=== PATIENT | male | born 1990 | race Caucasian/White ===

== ENCOUNTER 2018-09-08 21:00 | Emergency (ER) | payer BC ==
[~2018-09-08] VITALS: Ht 185.4 cm; Wt 106.6 kg
--- NOTE | 2018-09-08 21:20 | NUR ---
BIBPARENT C/O HEART PALPITATIONS X1 MONTH. -CP, -SOB, -N/V/D, -HEADACHE, -DIZINESS. NO OTHER COMPLAINTS AT THIS TIME. NO ACUTE DISTRESS NOTED. AOX4, VSS, RR EVEN AND UNLABORED ON RA. AMBULATORY WITH STEADY GAIT. ON MONITOR AND MADE COMFORTABLE. READY FOR MD KELLEY.
--- NOTE | 2018-09-08 21:42 | NUR ---
DR DOVE AT BEDSIDE FOR EVAL.
[2018-09-08] MEDS: IV NS 0.9% 1,000 ML BAG IV ONE (21:57)
[2018-09-08 22:06] LABS: BASOPHILS # (AUTO) 0.1 /CMM (0.0-0.2); BASOPHILS % (AUTO) 0.7 % (0.0-2.0); EOSINOPHILS % (AUTO) 0.1 % (0.0-6.0); HEMATOCRIT 43 % (39-51); HEMOGLOBIN 14.1 g/dL (13.5-17.5); LYMPHOCYTES # (AUTO) 1.8 /CMM (0.8-4.8); LYMPHOCYTES % (AUTO) 23.1 % (20.0-44.0); MEAN CORPUSCULAR HGB CONC 33 g/dl (31.0-36.0); MEAN CORPUSCULAR VOLUME 89 fL (80-96); MONOCYTES # (AUTO) 0.8 /CMM (0.1-1.30); MONOCYTES % (AUTO) 9.8 % (2.0-12.0); NEUTROPHILS # (AUTO) 5.1 /CMM (1.8-8.9); NEUTROPHILS % (AUTO) 66.3 % (43.0-81.0); PLATELET COUNT (AUTO) 205 /CMM (150-450); RED BLOOD CELL COUNT(AUTO) 4.82 MIL/uL (4.5-6.0); WHITE BLOOD COUNT (AUTO) 7.7 K/uL (4.3-11.0)
[2018-09-08 22:13] LABS: CALCIUM, SERUM 9.5 mg/dL (8.5-10.1); CREATININE 1.2 mg/dL (0.6-1.3); POTASSIUM 4.6 mmol/L (3.5-5.1)
--- NOTE | 2018-09-08 22:32 | NUR ---
PT NOT WANTING TO COMPLETE FLUIDS. Patient discharged to home in stable condition. Written and verbal after care instructions given. Patient verbalizes understanding of instruction.IV removed. Catheter intact and site benign. Pressure and 4x4 applied to site. No bleeding noted.
[2018-09-08 22:33] VITALS: BP 125/81
== END 2018-09-08 22:35 | disposition home or self-care (01) ==
LOC: EDBD 21:04 → ER 21:04
DX: R00.2 Palpitations (principal); Z60.2 Problems related to living alone
CPT/HCPCS: 36415; 80048; 85025; 93005; 99284; J7030